=== PATIENT | male | born 1940 ===

== ENCOUNTER 2023-08-29 08:23 | Outpatient (CLI) | payer OTHER | END 2023-08-29 09:22 | disposition home or self-care (01) | LOC: RX STUDY 08:23 | PROVIDERS: ATTEND Internal Medicine Hematology & Oncology | DX: R97.0 Elevated carcinoembryonic antigen [CEA] (principal); C18.6 Malignant neoplasm of descending colon; D63.1 Anemia in chronic kidney disease; D50.0 Iron deficiency anemia secondary to blood loss (chronic); D46.9 Myelodysplastic syndrome, unspecified ==